=== PATIENT | male | born 1995 | race Caucasian/White ===

== ENCOUNTER 2016-06-10 13:37 | Emergency (ER) | payer SELFPAY ==
[~2016-06-10] VITALS: Ht 177.8 cm; Wt 65.0 kg
[~2016-06-10 13:37] MED LIST: ALBU6.7H INH; PRED-503 PO
[2016-06-10 13:38] VITALS: BP 125/64; PULSE 65; RESP 14; TEMP 97.8; O2SAT 99
--- NOTE | 2016-06-10 14:12 | PD ---
HPI . skin infection on right calf and right armpit x several days Chief Complaint: Skin Problem Time Seen by Provider: 14:12 Travel History International Travel<30 days: No Contact w/Intl Traveler<30days: No Traveled to known affect area: No History of Present Illness HPI 20 yr old male here with c/o right calf and right axilla skin infection x several days. He says he is not certain if something may have bitten him, but he now has these two areas of concern that are causing him pain. He thinks they are infected and decided to come in for further evaluation. He has not tried any otc medicines. Pain is 5/10 in the lower extremity. In the axilla pain is about the same. There are no definitive abscess collections. He denies any fever or chills. PFSH Past Medical History Asthma: Yes Anxiety: Yes Depression: Yes Cancer: No Cardiovascular Problems: No COPD: Yes Diminished Hearing: No Endocrine: No Gastrointestinal Disorders: No Genitourinary: No Immune Disorder: Yes Implanted Vascular Access Dvce: No Musculoskeletal: No Neurologic: No Psychiatric: Yes Reproductive: No Respiratory: Yes (asthma) Immunizations Current: Yes Tetanus Vaccination: < 5 Years Influenza Vaccination: No Past Surgical History Surgical History: No Previous Surgery Other Surgery: No Social History Alcohol Use: No Tobacco Use: Yes (03/28 PPD) Substance Use: No Allergies-Medications (Allergen,Severity, Reaction): Coded Allergies: Cat Dander (Verified Allergy, Severe, 06/10/16) PEANUTS (Verified Allergy, Severe, Anaphylaxis, 06/10/16) Penicillin (Verified Allergy, Severe, 06/10/16) Ibuprofen (Unverified Allergy, Mild, 06/10/16) PT STATES NOT ALLERGIC TO IBUPROFEN Tylenol (Unverified Allergy, Mild, 06/10/16) PT STATES HE IS NOT ALLERGIC TO TYLENOL Ultram (Unverified Allergy, Mild, 06/10/16) Reported Meds & Prescriptions Reported Meds & Active Scripts Active Bactroban Topical (Mupirocin) 2% Oint 1 Applic TOPICAL ONCE Bactrim DS (Sulfamethoxazole-Trimethoprim) 800-160 Mg Tab 1 Tab PO BID Review of Systems General / Constitutional: No: Fever Eyes: No: Visual changes HENT: No: Headaches Cardiovascular: No: Chest Pain or Discomfort Respiratory: No: Shortness of Breath Gastrointestinal: No: Abdominal Pain Genitourinary: No: Dysuria Musculoskeletal: Positive: Pain (right calf/axilla) Skin: Positive Other (right calf/right axilla cellulitis), No Rash Neurologic: No: Weakness Psychiatric: No: Depression Endocrine: No: Polydipsia Hematologic/Lymphatic: No: Easy Bruising Physical Exam Narrative GENERAL: AAO x 3, no acute distress, Well-nourished, well-developed patient. SKIN: Warm and dry. No visible rashes or bruising. Right lateral calf with 5 cm area of cellulitis (erythema, warmth, tender to touch) no abscess. Right axilla with two small 2 cm areas of cellulitis; no definitive abscess (erythema, edema , warm to touch) HEAD: Normocephalic and atraumatic. EYES: No scleral icterus. No injection or drainage. ENT: No nasal drainage noted. Mucous membranes pink. Airway patent. NECK: Supple, trachea midline. No JVD. CARDIOVASCULAR: Regular rate and rhythm without murmurs, gallops, or rubs. RESPIRATORY: Breath sounds equal bilaterally. No accessory muscle use. No rhonchi or rales. GASTROINTESTINAL: Abdomen soft, non-tender, nondistended. EXTREMITIES: No cyanosis or edema. BACK: Nontender without obvious deformity. No CVA tenderness. PSYCH: AAO x 3, normal affect. Data Data Last Documented VS Vital Signs Date Time Temp Pulse Resp B/P Pulse Ox O2 Delivery O2 Flow Rate FiO2 06/10/16 13:38 97.8 65 14 125/64 99 Orders Wound Care (06/10/16 14:21) MDM Medical Decision Making Medical Screen Exam Complete: Yes Emergency Medical Condition: Yes Medical Record Reviewed: Yes Differential Diagnosis right leg cellulitis, right axilla cellulitis, abscess Narrative Course 20 yr old male here with c/o right calf and right axilla skin infection x several days. He says he is not certain if something may have bitten him, but he now has these two areas of concern that are causing him pain. He thinks they are infected and decided to come in for further evaluation. He has not tried any otc medicines. Pain is 5/10 in the lower extremity. In the axilla pain is about the same. There are no definitive abscess collections. He denies any fever or chills. Patient seen and examined. There are no definitive abscesses, however he does have cellulitis is both areas. I explained that there isn't anything that I can cut or drain,however, if he uses warm compresses and a head forms, that we may be able to drain. In the meantime, I will cover with antibiotics both topical and oral. He was advised to return to ED for worsening infection or if the area seems that we can cut it open. He verbalized understanding of instructions and thanked me for his care. The area of cellulitis the the lower extremity was cleaned and dressed with a sterile gauze. Diagnosis Primary Impression: Cellulitis of right leg Additional Impression: Cellulitis of right axilla Patient Instructions: Acute Wound Care (ED), Cellulitis (ED), General Instructions Additional Instructions: [place] for worsening signs of infection which include increased redness, increased warmth, purulent drainage, increased swelling or streaking. Please return to emergency department if your symptoms return or worsen. Follow up with your primary care provider. Take medications as prescribed. Use warm compresses to all of these areas to see if they form a head. If they do, at that point we will be able to cut them and drain them. Med/Other Pt SpecificInfo: Prescription(s) given Scripts Mupirocin Topical (Bactroban Topical)2% Oint1 Applic TOPICAL ONCE #1 TUBE Ref 0 Prov:Kvng Ramsey MD 06/10/16 Sulfamethoxazole-Trimethoprim (Bactrim DS)800-160 Mg Tab1 Tab PO BID #20 TAB Prov:Kvng Ramsey MD 06/10/16 Disposition: 01 DISCHARGE HOME Condition: Stable Lory Adair Jun 10, 2016 14:12
[2016-06-10] MEDS ORDERED: BACT2OIN TOPICAL (14:18)
[2016-06-10] MEDS ORDERED: BACT800T5 PO (14:18)
== END 2016-06-10 15:07 | disposition home or self-care (01) ==
LOC: NEPB 13:37
DX: L03.115 Cellulitis of right lower limb (principal); L03.111 Cellulitis of right axilla; Z72.0 Tobacco use
CPT/HCPCS: 99282

== ENCOUNTER 2017-03-09 11:36 | Emergency (ER) | payer SELFPAY ==
[~2017-03-09] VITALS: Ht 177.8 cm; Wt 70.0 kg
[~2017-03-09 11:36] MED LIST changes: -ALBU6.7H INH; +BACT2OIN TOPICAL; +BACT800T5 PO; -PRED-503 PO
[2017-03-09 11:40] VITALS: BP 122/68; PULSE 71; RESP 16; TEMP 98.6; O2SAT 100
--- NOTE | 2017-03-09 11:54 | PD ---
HPI Chief Complaint: Medical Clearance Time Seen by Provider: 11:46 Travel History International Travel<30 days: No Contact w/Intl Traveler<30days: No Traveled to known affect area: No History of Present Illness HPI 21-year-old male presents to emergency department from [facility] for medical clearance for inpatient detox. Patient states that he last used heroin yesterday. Patient was apparently sent here because he had a seizure one year ago secondary to alcohol and drug use. Patient denies any recent history of seizures. The patient does not take any medication. Patient has asthma however has not been using his inhalers. Patient states he has felt a little warm but denies fevers or chills. Patient denies shortness of breath or chest pain. Has no other complaints today. PFSH Past Medical History Asthma: Yes Anxiety: Yes Depression: Yes Cancer: No Cardiovascular Problems: No COPD: Yes Diminished Hearing: No Endocrine: No Gastrointestinal Disorders: No Genitourinary: No Immune Disorder: Yes Implanted Vascular Access Dvce: No Musculoskeletal: No Neurologic: No Psychiatric: Yes Reproductive: No Respiratory: Yes (asthma) Immunizations Current: Yes Past Surgical History Other Surgery: No Social History Alcohol Use: No Tobacco Use: Yes (03/28 PPD) Substance Use: No (HEROINE/ALCOHOL) Allergies-Medications (Allergen,Severity, Reaction): Coded Allergies: cat dander (Unverified Allergy, Severe, 03/09/17) peanut (Unverified Allergy, Severe, Anaphylaxis, 03/09/17) penicillin G (Unverified Allergy, Severe, 03/09/17) acetaminophen (Unverified Allergy, Mild, 03/09/17) PT STATES HE IS NOT ALLERGIC TO TYLENOL ibuprofen (Unverified Allergy, Mild, 03/09/17) PT STATES NOT ALLERGIC TO IBUPROFEN tramadol (Unverified Allergy, Mild, 03/09/17) Reported Meds & Prescriptions Reported Meds & Active Scripts Active Ventolin Hfa 18 GM Inh (Albuterol Sulfate) 90 Mcg/Act Aer 2 Puff INH Q4-6H PRN Bactroban Topical (Mupirocin) 2% Oint 1 Applic TOPICAL ONCE Bactrim DS (Sulfamethoxazole-Trimethoprim) 800-160 Mg Tab 1 Tab PO BID Review of Systems Except as stated in HPI: all other systems reviewed are Neg Physical Exam Narrative GENERAL: Well-nourished, well-developed patient. SKIN: Focused skin assessment warm/dry. HEAD: Normocephalic. EYES: No scleral icterus. No injection or drainage. NECK: Supple, trachea midline. No JVD or lymphadenopathy. CARDIOVASCULAR: Regular rate and rhythm without murmurs, gallops, or rubs. RESPIRATORY: Breath sounds equal bilaterally. No accessory muscle use. Mild wheezing diffuse GASTROINTESTINAL: Abdomen soft, non-tender, nondistended. MUSCULOSKELETAL: No cyanosis, or edema. BACK: Nontender without obvious deformity. No CVA tenderness. Data Data Last Documented VS Vital Signs Date Time Temp Pulse Resp B/P (MAP) Pulse Ox O2 Delivery O2 Flow Rate FiO2 03/09/17 13:14 125/72 (89) 03/09/17 11:40 98.6 71 16 100 Orders Orders Complete Blood Count With Diff (03/09/17 11:53) Comprehensive Metabolic Panel (03/09/17 11:53) Urinalysis - C+S If Indicated (03/09/17 11:53) Drug Screen, Random Urine (03/09/17 11:53) Albuterol Neb (Albuterol Neb) (03/09/17 12:00) Ed Discharge Order (03/09/17 13:08) Labs Laboratory Tests Test 03/09/17 11:55 03/09/17 12:08 White Blood Count 6.1 TH/MM3 Red Blood Count 5.08 MIL/MM3 Hemoglobin 14.8 GM/DL Hematocrit 43.7 % Mean Corpuscular Volume 85.9 FL Mean Corpuscular Hemoglobin 29.1 PG Mean Corpuscular Hemoglobin Concent 33.9 % Red Cell Distribution Width 13.5 % Platelet Count 275 TH/MM3 Mean Platelet Volume 7.7 FL Neutrophils (%) (Auto) 72.3 % Lymphocytes (%) (Auto) 14.6 % Monocytes (%) (Auto) 8.8 % Eosinophils (%) (Auto) 3.7 % Basophils (%) (Auto) 0.6 % Neutrophils # (Auto) 4.4 TH/MM3 Lymphocytes # (Auto) 0.9 TH/MM3 Monocytes # (Auto) 0.5 TH/MM3 Eosinophils # (Auto) 0.2 TH/MM3 Basophils # (Auto) 0.0 TH/MM3 CBC Comment DIFF FINAL Differential Comment Blood Urea Nitrogen 7 MG/DL Creatinine 0.87 MG/DL Random Glucose 88 MG/DL Total Protein 7.5 GM/DL Albumin 3.8 GM/DL Calcium Level 9.5 MG/DL Alkaline Phosphatase 99 U/L Aspartate Amino Transf (AST/SGOT) 26 U/L Alanine Aminotransferase (ALT/SGPT) 23 U/L Total Bilirubin 0.5 MG/DL Sodium Level 138 MEQ/L Potassium Level 3.8 MEQ/L Chloride Level 106 MEQ/L Carbon Dioxide Level 25.4 MEQ/L Anion Gap 7 MEQ/L Estimat Glomerular Filtration Rate 109 ML/MIN Urine Color LIGHT-YELLOW Urine Turbidity CLEAR Urine pH 7.5 Urine Specific [place] 1.004 Urine Protein NEG mg/dL Urine Glucose (UA) NEG mg/dL Urine Ketones NEG mg/dL Urine Occult Blood NEG Urine Nitrite NEG Urine Bilirubin NEG Urine Urobilinogen LESS THAN 2.0 MG/DL Urine Leukocyte Esterase NEG Urine RBC LESS THAN 1 /hpf Urine WBC 2 /hpf Microscopic Urinalysis Comment CULT NOT INDICATED Urine Opiates Screen NEG Urine Barbiturates Screen NEG Urine Amphetamines Screen NEG Urine Benzodiazepines Screen NEG Urine Cocaine Screen POS Urine Cannabinoids Screen NEG MDM Medical Decision Making Medical Screen Exam Complete: Yes Emergency Medical Condition: Yes Differential Diagnosis Medical clearance, polysubstance abuse, heroin use Narrative Course 21-year-old male presents to emergency department from [facility] for medical clearance for inpatient detox. Patient states that he last used heroin yesterday. Patient was apparently sent here because he had a seizure one year ago secondary to alcohol and drug use. Patient denies any recent history of seizures. The patient does not take any medication. Patient has asthma however has not been using his inhalers. Patient states he has felt a little warm but denies fevers or chills. Patient denies shortness of breath or chest pain. Has no other complaints today. Vital signs stable Physical exam slight diffuse wheezing. DuoNeb administered- patient says he feels better. Laboratory Tests Test 03/09/17 11:55 03/09/17 12:08 White Blood Count 6.1 TH/MM3 Red Blood Count 5.08 MIL/MM3 Hemoglobin 14.8 GM/DL Hematocrit 43.7 % Mean Corpuscular Volume 85.9 FL Mean Corpuscular Hemoglobin 29.1 PG Mean Corpuscular Hemoglobin Concent 33.9 % Red Cell Distribution Width 13.5 % Platelet Count 275 TH/MM3 Mean Platelet Volume 7.7 FL Neutrophils (%) (Auto) 72.3 % Lymphocytes (%) (Auto) 14.6 % Monocytes (%) (Auto) 8.8 % Eosinophils (%) (Auto) 3.7 % Basophils (%) (Auto) 0.6 % Neutrophils # (Auto) 4.4 TH/MM3 Lymphocytes # (Auto) 0.9 TH/MM3 Monocytes # (Auto) 0.5 TH/MM3 Eosinophils # (Auto) 0.2 TH/MM3 Basophils # (Auto) 0.0 TH/MM3 CBC Comment DIFF FINAL Differential Comment Blood Urea Nitrogen 7 MG/DL Creatinine 0.87 MG/DL Random Glucose 88 MG/DL Total Protein 7.5 GM/DL Albumin 3.8 GM/DL Calcium Level 9.5 MG/DL Alkaline Phosphatase 99 U/L Aspartate Amino Transf (AST/SGOT) 26 U/L Alanine Aminotransferase (ALT/SGPT) 23 U/L Total Bilirubin 0.5 MG/DL Sodium Level 138 MEQ/L Potassium Level 3.8 MEQ/L Chloride Level 106 MEQ/L Carbon Dioxide Level 25.4 MEQ/L Anion Gap 7 MEQ/L Estimat Glomerular Filtration Rate 109 ML/MIN Urine Color LIGHT-YELLOW Urine Turbidity CLEAR Urine pH 7.5 Urine Specific [place] 1.004 Urine Protein NEG mg/dL Urine Glucose (UA) NEG mg/dL Urine Ketones NEG mg/dL Urine Occult Blood NEG Urine Nitrite NEG Urine Bilirubin NEG Urine Urobilinogen LESS THAN 2.0 MG/DL Urine Leukocyte Esterase NEG Urine RBC LESS THAN 1 /hpf Urine WBC 2 /hpf Microscopic Urinalysis Comment CULT NOT INDICATED Urine Opiates Screen NEG Urine Barbiturates Screen NEG Urine Amphetamines Screen NEG Urine Benzodiazepines Screen NEG Urine Cocaine Screen POS Urine Cannabinoids Screen NEG Patient is cleared to [facility] for detox. Patient will be discharged with an albuterol inhaler as patient has a history of asthma. Follow-up with primary care physician. Diagnosis Primary Impression: Medical clearance for psychiatric admission Referrals: Primary Care Physician Additional Instructions: Take all medication as prescribed. Scripts Albuterol 18 GM Inh (Ventolin Hfa 18 GM Inh) 90 Mcg/Act Aer 2 PUFF INH Q4-6H Y for SHORTNESS OF BREATH, #1 INHALER 0 Refills Prov: Herbert Shepherd MD 03/09/17 Condition: Stable Britany Forrest Mar 09, 2017 11:54
[2017-03-09] MEDS ORDERED: RESP: ALBUTEROL 2.5 MG/3 ML NEB (SCH) NEB ONE (12:00)
[2017-03-09 12:24] LABS: AUTOMATED NEUTROPHIL # 4.4 TH/MM3 (1.8-7.7); BASOPHIL % 0.6 % (0.0-2.0); EOSINOPHIL # 0.2 TH/MM3 (0-0.4); EOSINOPHIL % 3.7 % (0.0-4.0); HEMATOCRIT 43.7 % (39.0-51.0); HEMOGLOBIN 14.8 GM/DL (13.0-17.0); LYMPH % 14.6 % (9.0-44.0); LYMPHOCYTE # 0.9 TH/MM3 (1.0-4.8); MEAN CELL VOLUME 85.9 FL (80.0-100.0); MEAN CORPUSCULAR HEMOGLOBIN 29.1 PG (27.0-34.0); MEAN CORPUSCULAR HGB CONC 33.9 % (32.0-36.0); MEAN PLATELET VOLUME 7.7 FL (7.0-11.0); MONO % 8.8 % (0.0-8.0); MONOCYTE # 0.5 TH/MM3 (0-0.9); NEUT % 72.3 % (16.0-70.0); PLATELET COUNT 275 TH/MM3 (150-450); RED BLOOD COUNT 5.08 MIL/MM3 (4.50-5.90); RED CELL DISTRIBUTION WIDTH 13.5 % (11.6-17.2); WHITE BLOOD COUNT 6.1 TH/MM3 (4.0-11.0)
[2017-03-09 12:33] LABS: BILIRUBIN, URINE NEG (NEG); BLOOD, URINE NEG (NEG); GLUCOSE,URINE NEG (NEG); KETONE, URINE NEG (NEG); NITRITE,URINE NEG (NEG); PH, URINE 7.5 (5.0-8.5); URINE COLOR LIGHT-YELLOW (YELLW/STRAW); URINE LEUKOCYTE ESTERASE NEG (NEG)
[2017-03-09 12:39] LABS: ALBUMIN 3.8 GM/DL (3.4-5.0); ALT (GPT) 23 U/L (12-78); AST (GOT) 26 U/L (15-37); BICARBONATE 25.4 MEQ/L (21.0-32.0); BLOOD UREA NITROGEN 7 MG/DL (7-18); CALCIUM 9.5 MG/DL (8.5-10.1); CHLORIDE 106 MEQ/L (98-107); CREATININE 0.87 MG/DL (0.60-1.30); GLOMERULAR FILTRATION RATE 109 ML/MIN (>89); GLUCOSE,RANDOM 88 MG/DL (74-106); SODIUM (NA) 138 MEQ/L (136-145)
[2017-03-09 12:41] LABS: ALKALINE PHOSPHATASE 99 U/L (45-117); TOTAL BILIRUBIN ADULT 0.5 MG/DL (0.2-1.0); TOTAL PROTEIN 7.5 GM/DL (6.4-8.2)
[2017-03-09] MEDS ORDERED: VENTAER INH (13:07)
[2017-03-09 13:14] VITALS: BP 125/72
== END 2017-03-09 13:33 | disposition home or self-care (01) ==
LOC: NEPD 11:36
DX: J44.9 Chronic obstructive pulmonary disease, unspecified (principal); F17.200 Nicotine dependence, unspecified, uncomplicated; F19.90 Other psychoactive substance use, unspecified, uncomplicated
CPT/HCPCS: 80053; 80307; 81001; 85025; 94664; 99283; J7613

== ENCOUNTER 2017-06-05 13:33 | Emergency (ER) | payer SELFPAY ==
[~2017-06-05] VITALS: Ht 177.8 cm; Wt 68.0 kg
[~2017-06-05 13:33] MED LIST changes: +VENTAER INH
[2017-06-05 13:40] VITALS: PULSE 79; RESP 18; TEMP 97.8; O2SAT 94
[2017-06-05] MEDS ORDERED: SUBO8MIS SL (13:51)
[2017-06-05] MEDS ORDERED: VENTAER INH (13:55)
[2017-06-05] MEDS ORDERED: PRED20 PO (13:55)
[2017-06-05] MEDS ORDERED: predniSONE 20 MG TAB PO ONE (14:00)
[2017-06-05] MEDS: RESP: ALBUTEROL 2.5 MG/IPRATROPIUM 0.5 MG NEB (SCH) INH (14:02)
--- NOTE | 2017-06-05 14:02 | PD ---
HPI Chief Complaint: Respiratory Symptoms Time Seen by Provider: 13:48 Travel History International Travel<30 days: No Contact w/Intl Traveler<30days: No Traveled to known affect area: No History of Present Illness HPI This patient complains of shortness of breath. He does have wheezing and congestion for 3 days. He has history of asthma. He supposed to be using an inhaler but ran out and does not have one. Symptom severity is moderate. No alleviating factors. Denies fever or chest pain. No exacerbating factors. PFSH Past Medical History Asthma: Yes Anxiety: Yes Depression: Yes Cancer: No Cardiovascular Problems: No COPD: Yes Diminished Hearing: No Endocrine: No Gastrointestinal Disorders: No Genitourinary: No Immune Disorder: Yes Implanted Vascular Access Dvce: No Musculoskeletal: No Neurologic: No Psychiatric: Yes Reproductive: No Respiratory: Yes (asthma) Immunizations Current: Yes Past Surgical History Other Surgery: No Social History Alcohol Use: No Tobacco Use: Yes (03/28 PPD) Substance Use: No (HEROINE/ALCOHOL) Allergies-Medications (Allergen,Severity, Reaction): Coded Allergies: cat dander (Unverified Allergy, Severe, 06/05/17) peanut (Unverified Allergy, Severe, Anaphylaxis, 06/05/17) penicillin G (Unverified Allergy, Severe, 06/05/17) acetaminophen (Unverified Allergy, Mild, 06/05/17) PT STATES HE IS NOT ALLERGIC TO TYLENOL ibuprofen (Unverified Allergy, Mild, 06/05/17) PT STATES NOT ALLERGIC TO IBUPROFEN tramadol (Unverified Allergy, Mild, 06/05/17) Reported Meds & Prescriptions Reported Meds & Active Scripts Active Prednisone 20 Mg Tab 40 Mg PO DAILY Take 40 mg (2 tablets) daily for 5 days Ventolin Hfa 18 GM Inh (Albuterol Sulfate) 90 Mcg/Act Aer 2 Puff INH Q4-6H PRN Reported Suboxone Sublingual Film (Buprenorphine-Naloxone Sublingual Film) 8-2 Mg Film 1 Film SL DIRECTED Unique ID number required: Review of Systems General / Constitutional: No: Fever Eyes: No: Visual changes HENT: No: Headaches Cardiovascular: No: Chest Pain or Discomfort Respiratory: Positive: Shortness of Breath, Wheezing Gastrointestinal: No: Abdominal Pain Genitourinary: No: Dysuria Musculoskeletal: No: Pain Skin: No Rash Neurologic: No: Weakness Psychiatric: No: Depression Endocrine: No: Polydipsia Hematologic/Lymphatic: No: Easy Bruising Physical Exam Narrative GENERAL: Well-nourished, well-developed patient in no apparent distress. SKIN: Focused skin assessment reveals some superficial irritation around the anterior neck but no urticaria. Skin is Warm and dry. HEAD: Atraumatic. Normocephalic. EYES: Pupils equal and round. No scleral icterus. No injection or drainage. ENT: No nasal bleeding or discharge. Mucous membranes pink and moist. NECK: Trachea midline. No JVD. CARDIOVASCULAR: Regular rate and rhythm. No murmur appreciated. RESPIRATORY: No accessory muscle use. Diffuse expiratory wheezing, no crackles. Breath sounds equal bilaterally. GASTROINTESTINAL: Abdomen soft, non-tender, nondistended. Hepatic and splenic margins not palpable. MUSCULOSKELETAL: No obvious deformities. No clubbing. No cyanosis. No edema. NEUROLOGICAL: Awake and alert. No obvious cranial nerve deficits. Motor grossly within normal limits. Normal speech. PSYCHIATRIC: Appropriate mood and affect; insight and judgment normal. Data Data Last Documented VS Vital Signs Date Time Temp Pulse Resp B/P (MAP) Pulse Ox O2 Delivery O2 Flow Rate FiO2 06/05/17 13:47 82 18 96 06/05/17 13:40 97.8 Orders Orders Albuterol-Ipratropium Neb (Duoneb Neb) (06/05/17 14:00) Prednisone (Deltasone) (06/05/17 14:00) [facility] Medical Decision Making Medical Screen Exam Complete: Yes Emergency Medical Condition: Yes Medical Record Reviewed: Yes Differential Diagnosis Asthma exacerbation, bronchitis, URI Narrative Course I have reviewed the patient's electronic medical record. Patient is here for asthma 2014 and for a variety of things in 2016 I gave him a series of 3 nebulizers I gave him 100 mg of prednisone On recheck he is much better and desires to go home. His wheezing is better Diagnosis Primary Impression: Asthma exacerbation Qualified Codes: J45.21 - Mild intermittent asthma with (acute) exacerbation Additional Instructions: The patient was advised to follow up with their physician and return if they worsen. Med/Other Pt SpecificInfo: Prescription(s) given Scripts Prednisone (Prednisone) 20 Mg Tab 40 MG PO DAILY, #10 TAB 0 Refills Take 40 mg (2 tablets) daily for 5 days Prov: Ryan Georges MD 06/05/17 Albuterol 18 GM Inh (Ventolin Hfa 18 GM Inh) 90 Mcg/Act Aer 2 PUFF INH Q4-6H Y for SHORTNESS OF BREATH, #1 INHALER 0 Refills Prov: Ryan Georges MD 06/05/17 Disposition: 01 DISCHARGE HOME Condition: Stable Ryan Georges MD Jun 05, 2017 14:02
== END 2017-06-05 15:24 | disposition home or self-care (01) ==
LOC: PHED 13:33
DX: J45.21 Mild intermittent asthma with (acute) exacerbation (principal); J44.9 Chronic obstructive pulmonary disease, unspecified; F17.200 Nicotine dependence, unspecified, uncomplicated
CPT/HCPCS: 94640; 94664; 99283; J7512

== ENCOUNTER 2017-06-06 18:33 | Emergency (ER) | payer SELFPAY ==
[~2017-06-06] VITALS: Ht 177.8 cm; Wt 69.0 kg
[~2017-06-06 18:33] MED LIST changes: -BACT2OIN TOPICAL; -BACT800T5 PO; +PRED20 PO; +SUBO8MIS SL
[2017-06-06 18:44] VITALS: BP 128/68; PULSE 88; RESP 16; TEMP 99; O2SAT 94
[2017-06-06] MEDS ORDERED: RESP: ALBUTEROL 2.5 MG/IPRATROPIUM 0.5 MG NEB (SCH) NEB ONE (20:15)
--- NOTE | 2017-06-06 20:15 | PD ---
HPI Chief Complaint: Cold / Flu Symptoms Time Seen by Provider: 20:04 Travel History International Travel<30 days: No Contact w/Intl Traveler<30days: No Traveled to known affect area: No History of Present Illness HPI Patient is a 21-year-old female, pack per day smoker presents emergency department with shortness of breath. States he has a history of asthma and has run out of his inhaler. He was seen here yesterday placed on a course of steroids and prescription for albuterol inhaler. Patient states his pain days until tomorrow so he cannot afford his medications. He states that he thinks he needs another breathing treatment now. States symptoms are worse at night, context as above, moderate in severity, no alleviating or exacerbating factors. PFSH Past Medical History Asthma: Yes Anxiety: Yes Depression: Yes Cancer: No Cardiovascular Problems: No COPD: Yes Diminished Hearing: No Endocrine: No Gastrointestinal Disorders: No Genitourinary: No Immune Disorder: Yes Implanted Vascular Access Dvce: No Musculoskeletal: No Neurologic: No Psychiatric: Yes Reproductive: No Respiratory: Yes (asthma) Immunizations Current: Yes Tetanus Vaccination: < 5 Years Influenza Vaccination: No Past Surgical History Other Surgery: No Social History Alcohol Use: No Tobacco Use: Yes (03/28 PPD) Substance Use: No (HEROINE/ALCOHOL) Allergies-Medications (Allergen,Severity, Reaction): Coded Allergies: cat dander (Unverified Allergy, Severe, 06/06/17) peanut (Unverified Allergy, Severe, Anaphylaxis, 06/06/17) penicillin G (Unverified Allergy, Severe, 06/06/17) acetaminophen (Unverified Allergy, Mild, 06/06/17) PT STATES HE IS NOT ALLERGIC TO TYLENOL ibuprofen (Unverified Allergy, Mild, 06/06/17) PT STATES NOT ALLERGIC TO IBUPROFEN tramadol (Unverified Allergy, Mild, 06/06/17) Reported Meds & Prescriptions Reported Meds & Active Scripts Active Prednisone 20 Mg Tab 40 Mg PO DAILY Take 40 mg (2 tablets) daily for 5 days Ventolin Hfa 18 GM Inh (Albuterol Sulfate) 90 Mcg/Act Aer 2 Puff INH Q4-6H PRN Reported Suboxone Sublingual Film (Buprenorphine-Naloxone Sublingual Film) 8-2 Mg Film 1 Film SL DIRECTED Unique ID number required: Review of Systems Except as stated in HPI: all other systems reviewed are Neg Physical Exam Narrative GENERAL: Well-developed, well-nourished, no obvious distress peer SKIN: Focused skin assessment warm/dry. HEAD: Atraumatic. Normocephalic. EYES: Pupils equal and round. No scleral icterus. No injection or drainage. ENT: No nasal bleeding or discharge. Mucous membranes pink and moist. TMs clear bilaterally, oropharynx clear moist NECK: Trachea midline. No JVD. CARDIOVASCULAR: Regular rate and rhythm. No murmur appreciated. RESPIRATORY: No accessory muscle use. Expiratory coarse rhonchi and wheezes, no rales. Breath sounds equal bilaterally. GASTROINTESTINAL: Abdomen soft, non-tender, nondistended. Hepatic and splenic margins not palpable. MUSCULOSKELETAL: No obvious deformities. No clubbing. No cyanosis. No edema. NEUROLOGICAL: Awake and alert. No obvious cranial nerve deficits. Motor grossly within normal limits. Normal speech. PSYCHIATRIC: Appropriate mood and affect; insight and judgment normal. Data Data Last Documented VS Vital Signs Date Time Temp Pulse Resp B/P (MAP) Pulse Ox O2 Delivery O2 Flow Rate FiO2 06/06/17 19:39 Room Air 06/06/17 18:44 99.0 88 16 128/68 (88) 94 Orders Orders Albuterol-Ipratropium Neb (Duoneb Neb) (06/06/17 20:15) [facility] Medical Decision Making Medical Screen Exam Complete: Yes Emergency Medical Condition: Yes Differential Diagnosis Bronchitis, asthma, pneumonia, sepsis unlikely. Narrative Course Patient was room to the emergency department, he was given 3 DuoNeb's, he was prescribed a course of prednisone and albuterol inhaler. On my initial assessment of him I did talk to him about smoking cessation as can lead to chronic lung disease, , disability, heart disease and cancer. He was quite surprised at this information verbalized understanding. After treatments and went to reassess the patient and I was informed by nursing that he left without telling anybody he was leaving. He is eloped from the emergency department, had no chance to educate him further. Diagnosis Primary Impression: Bronchitis Disposition: 07 AGAINST MEDICAL ADVICE (Eloped) Manolo Lin MD Jun 06, 2017 20:15
== END 2017-06-06 21:46 | disposition left against medical advice (07) ==
LOC: PHED 18:33 → PHEFT 21:46
DX: J40 Bronchitis, not specified as acute or chronic (principal); Z53.21 Procedure and treatment not carried out due to patient leaving prior to being seen by health care provider; J44.9 Chronic obstructive pulmonary disease, unspecified; Z72.0 Tobacco use
CPT/HCPCS: 94664; 99283

== ENCOUNTER 2017-08-02 02:38 | Emergency (ER) | payer SELFPAY ==
[~2017-08-02] VITALS: Ht 177.8 cm; Wt 77.0 kg
[2017-08-02 02:50] VITALS: BP 143/70; PULSE 100; RESP 16; TEMP 98.7; O2SAT 97
[2017-08-02] MEDS ORDERED: SODIUM CHLOR 0.9% 1000 ML INJ 1,000 ML IV ONE (03:00)
--- NOTE | 2017-08-02 03:12 | PD ---
HPI Chief Complaint: OD/ Ingestion Time Seen by Provider: 02:53 Travel History International Travel<30 days: No Contact w/Intl Traveler<30days: No Traveled to known affect area: No History of Present Illness HPI 21-year-old male presents to the emergency department by EMS transport for possible overdose. Patient did receive a dose of Narcan 0.4 mg IV. Patient did have decreased mentation and respiratory effort that improved after Narcan. Patient admits that he used to use substances had been clean for 2 years and then recently relapsed. Patient admits to alcohol use and heroin use tonight as well as Xanax. Patient states that he feels well and would like to be discharged so that he can go to work by 6 AM. Patient denies other concerns or complaints. No report of trauma. PFSH Past Medical History Narrative Medical Asthma anxiety depression heroin use Xanax use alcohol use; nursing notes reviewed Asthma: Yes Anxiety: Yes Depression: Yes Cancer: No Cardiovascular Problems: No COPD: Yes Diminished Hearing: No Endocrine: No Gastrointestinal Disorders: No Genitourinary: No Immune Disorder: Yes Implanted Vascular Access Dvce: No Musculoskeletal: No Neurologic: No Psychiatric: Yes Reproductive: No Respiratory: Yes (Asthma as a child) Immunizations Current: Yes Past Surgical History Surgical History: No Previous Surgery Other Surgery: No Social History Alcohol Use: Yes Tobacco Use: Yes (03/28 PPD) Substance Use: Yes (Heroin, Xanax) Allergies-Medications (Allergen,Severity, Reaction): Coded Allergies: cat dander (Unverified Allergy, Severe, 06/06/17) peanut (Unverified Allergy, Severe, Anaphylaxis, 06/06/17) penicillin G (Unverified Allergy, Severe, 06/06/17) acetaminophen (Unverified Allergy, Mild, 06/06/17) PT STATES HE IS NOT ALLERGIC TO TYLENOL ibuprofen (Unverified Allergy, Mild, 06/06/17) PT STATES NOT ALLERGIC TO IBUPROFEN tramadol (Unverified Allergy, Mild, 06/06/17) Reported Meds & Prescriptions Reported Meds & Active Scripts Active Prednisone 20 Mg Tab 40 Mg PO DAILY Take 40 mg (2 tablets) daily for 5 days Ventolin Hfa 18 GM Inh (Albuterol Sulfate) 90 Mcg/Act Aer 2 Puff INH Q4-6H PRN Reported Suboxone Sublingual Film (Buprenorphine-Naloxone Sublingual Film) 8-2 Mg Film 1 Film SL DIRECTED Unique ID number required: Review of Systems Except as stated in HPI: all other systems reviewed are Neg Physical Exam Narrative GENERAL: Well-developed well-nourished male no acute distress no respiratory distress GCS 15 SKIN: Warm and dry. HEAD: Atraumatic. Normocephalic. EYES: Pupils equal and round. No scleral icterus. No injection or drainage. ENT: No nasal bleeding or discharge. Mucous membranes pink and moist. NECK: Trachea midline. No JVD. CARDIOVASCULAR: Regular rate and rhythm. RESPIRATORY: No accessory muscle use. Clear to auscultation. Breath sounds equal bilaterally. GASTROINTESTINAL: Abdomen soft, non-tender, nondistended. Hepatic and splenic margins not palpable. MUSCULOSKELETAL: Extremities without clubbing, cyanosis, or edema. No obvious deformities. NEUROLOGICAL: Awake and alert. No obvious cranial nerve deficits. Motor grossly within normal limits. Five out of 5 muscle strength in the arms and legs. Normal speech. PSYCHIATRIC: Appropriate mood and affect; insight and judgment normal. Data Data Last Documented VS Vital Signs Date Time Temp Pulse Resp B/P (MAP) Pulse Ox O2 Delivery O2 Flow Rate FiO2 08/02/17 05:36 08/02/17 05:02 98.4 85 16 97 08/02/17 02:50 Room Air Orders Orders Sodium Chlor 0.9% 1000 Ml Inj (Ns 1000 M (08/02/17 03:00) Complete Blood Count With Diff (08/02/17 02:54) Basic Metabolic Panel (Bmp) (08/02/17 02:54) Magnesium (Mg) (08/02/17 02:54) Drug Screen, Random Urine (08/02/17 02:54) Alcohol (Ethanol) (08/02/17 02:54) Labs Laboratory Tests Test 08/02/17 03:00 White Blood Count 14.4 TH/MM3 Red Blood Count 5.08 MIL/MM3 Hemoglobin 15.5 GM/DL Hematocrit 46.2 % Mean Corpuscular Volume 91.0 FL Mean Corpuscular Hemoglobin 30.4 PG Mean Corpuscular Hemoglobin Concent 33.5 % Red Cell Distribution Width 13.6 % Platelet Count 366 TH/MM3 Mean Platelet Volume 7.7 FL Neutrophils (%) (Auto) 78.2 % Lymphocytes (%) (Auto) 12.2 % Monocytes (%) (Auto) 7.4 % Eosinophils (%) (Auto) 1.6 % Basophils (%) (Auto) 0.6 % Neutrophils # (Auto) 11.3 TH/MM3 Lymphocytes # (Auto) 1.8 TH/MM3 Monocytes # (Auto) 1.1 TH/MM3 Eosinophils # (Auto) 0.2 TH/MM3 Basophils # (Auto) 0.1 TH/MM3 CBC Comment DIFF FINAL Differential Comment Blood Urea Nitrogen 11 MG/DL Creatinine 1.24 MG/DL Random Glucose 97 MG/DL Calcium Level 7.9 MG/DL Magnesium Level 2.1 MG/DL Sodium Level 141 MEQ/L Potassium Level 3.6 MEQ/L Chloride Level 109 MEQ/L Carbon Dioxide Level 24.1 MEQ/L Anion Gap 8 MEQ/L Estimat Glomerular Filtration Rate 72 ML/MIN Ethyl Alcohol Level LESS THAN 3 MG/DL MDM Medical Decision Making Medical Screen Exam Complete: Yes Emergency Medical Condition: Yes Medical Record Reviewed: Yes Differential Diagnosis Polysubstance ingestion, accidental versus intentional overdose, electrolyte disturbance Narrative Course 21-year-old male admits to using Xanax heroin and alcohol tonight; specimens collections of resulting; patient given normal saline bolus; patient will be observed for recurrent respiratory depression and altered mentation as Narcan clears his system At 5:40 AM informed by patient's nurse that patient eloped and left AMA when sent to the bathroom to obtain urine specimen. Diagnosis Primary Impression: Polysubstance abuse Referrals: Primary Care Physician call for appointment Cherie Rollins MD August 02, 2017 03:12
[2017-08-02 03:21] LABS: AUTOMATED NEUTROPHIL # 11.3 TH/MM3 (1.8-7.7); BASOPHIL # 0.1 TH/MM3 (0-0.2); BASOPHIL % 0.6 % (0.0-2.0); EOSINOPHIL # 0.2 TH/MM3 (0-0.4); EOSINOPHIL % 1.6 % (0.0-4.0); HEMATOCRIT 46.2 % (39.0-51.0); HEMOGLOBIN 15.5 GM/DL (13.0-17.0); LYMPH % 12.2 % (9.0-44.0); LYMPHOCYTE # 1.8 TH/MM3 (1.0-4.8); MEAN CORPUSCULAR HEMOGLOBIN 30.4 PG (27.0-34.0); MEAN CORPUSCULAR HGB CONC 33.5 % (32.0-36.0); MEAN PLATELET VOLUME 7.7 FL (7.0-11.0); MONO % 7.4 % (0.0-8.0); MONOCYTE # 1.1 TH/MM3 (0-0.9); NEUT % 78.2 % (16.0-70.0); PLATELET COUNT 366 TH/MM3 (150-450); RED BLOOD COUNT 5.08 MIL/MM3 (4.50-5.90); RED CELL DISTRIBUTION WIDTH 13.6 % (11.6-17.2); WHITE BLOOD COUNT 14.4 TH/MM3 (4.0-11.0)
[2017-08-02 03:35] LABS: BICARBONATE 24.1 MEQ/L (21.0-32.0); BLOOD UREA NITROGEN 11 MG/DL (7-18); CALCIUM 7.9 MG/DL (8.5-10.1); CHLORIDE 109 MEQ/L (98-107); CREATININE 1.24 MG/DL (0.60-1.30); GLOMERULAR FILTRATION RATE 72 ML/MIN (>89); GLUCOSE,RANDOM 97 MG/DL (74-106); MAGNESIUM 2.1 MG/DL (1.5-2.5); SODIUM (NA) 141 MEQ/L (136-145)
[2017-08-02 05:02] VITALS: PULSE 85; RESP 16; TEMP 98.4; O2SAT 97
== END 2017-08-02 05:42 | disposition left against medical advice (07) ==
LOC: NEPC 02:38
DX: F19.10 Other psychoactive substance abuse, uncomplicated (principal); F17.200 Nicotine dependence, unspecified, uncomplicated; J44.9 Chronic obstructive pulmonary disease, unspecified; Z79.899 Other long term (current) drug therapy
CPT/HCPCS: 80048; 80307; 83735; 85025; 96360; 96361; 99284; J7030